=== PATIENT | male | born 1955 | race American Indian/Alaskan Native ===

== ENCOUNTER 2018-01-15 19:24 | Emergency (ER) | payer SELFPAY ==
[2018-01-15 19:37] VITALS: TEMP 98.2
[2018-01-15] MEDS ORDERED: Alum-Mag Hydrox-Simethicone Susp (30 mL) PO STA (20:38)
[2018-01-15] MEDS ORDERED: Alum-Mag Hydrox-Simethicone Susp (30 mL) ONE (21:12)
[2018-01-15] MEDS ORDERED: Sodium Chloride 0.9% 50 ML IV ONE (21:18)
[2018-01-15] MEDS ORDERED: Iohexol 300 100 ML IJ ONE (21:18)
[2018-01-15 21:22] LABS: BASO % 0.3 % (0.0-2.0); EOS % 0.5 % (0.0-4.0); HEMOGLOBIN 15.4 g/dL (12.0-18.0); LYMPH # 1.4 K/uL (1.0-4.3); LYMPH % 18.6 % (20.0-40.0); MEAN CELL VOLUME 90.4 fl (80.0-94.0); MEAN CORPUSCULAR HGB CONC 34.3 g/dL (33.0-37.0); MEAN PLATELET VOLUME 7.9 fl (7.2-11.7); MONO # 0.6 K/uL (0.0-0.8); MONO % 8.3 % (0.0-10.0); NEUT # 5.6 K/uL (1.8-7.0); NEUT % 72.3 % (50.0-75.0); NRBC % 0.1 % (0.0-0.0); RBC 4.97 Mil/uL (4.40-5.90); RED CELL DISTRIBUTION WIDTH 14.9 % (11.5-14.5); WHITE BLOOD COUNT 7.7 K/uL (4.8-10.8)
[2018-01-15] MEDS ORDERED: Iodixanol 320 MG/ML 100 ML BOTTLE IV ONE (21:51)
--- NOTE | 2018-01-15 22:13 | ED PDOC ---
HPI: SOB/CHF/COPD Time Seen by Provider: 01/15/18 19:58 Chief Complaint (Nursing): Shortness Of Breath Chief Complaint (Provider): Chest pain, abdominal pain, shortness of breath History Per: Patient History/Exam Limitations: no limitations Onset/Duration Of Symptoms: Other (x3 months) Current Symptoms Are (Timing): Still Present Additional Complaint(s): 62 year old male, with no past medical history, presents to the ED complaining of intermittent chest pain with shortness of breath and palpitations. Patient states he has abdominal pain and suspects he may have stomach cancer. He reports [place] in an illegal housing sentiment where there is dry cleaning fluid in the ground. He states he smokes 2 packs per day for many years now. Denies weight loss, fever, vomiting, or diarrhea. PMD: none Past Medical History Reviewed: Historical Data, Nursing Documentation, Vital Signs Vital Signs: Last Vital Signs Temp 98.2 F 01/15/18 19:34 Pulse 112 H 01/15/18 19:34 Resp 16 01/15/18 20:40 BP 155/102 H 01/15/18 19:34 Pulse Ox 98 01/15/18 20:40 - Medical History PMH: No Chronic Diseases - Surgical History Surgical History: No Surg Hx - Family History Family History: States: Unknown Family Hx - Social History Current smoker - smoking cessation education provided: Yes (2 packs per day) Alcohol: Occasional Drugs: Cannabis - Home Medications Home Medications: Ambulatory Orders Medication Instructions Recorded Albuterol HFA [Ventolin HFA 90 1 - 2 puff IH Q6 PRN #1 inhaler 01/16/18 mcg/actuation (8 g)] Miconazole Nitrate [Lotrimin AF] 1 spray TP BID 28 Days powder 01/16/18 - Allergies Allergies/Adverse Reactions: Allergies Allergy/AdvReac Type Severity Reaction Status Date / Time No Known Allergies Allergy Verified 01/15/18 19:34 Review of Systems ROS Statement: Except As Marked, All Systems Reviewed And Found Negative Constitutional: Negative for: Fever Cardiovascular: Positive for: Chest Pain Respiratory: Positive for: Shortness of Breath Gastrointestinal: Positive for: Abdominal Pain. Negative for: Vomiting, Diarrhea Physical Exam - Reviewed Nursing Documentation Reviewed: Yes Vital Signs Reviewed: Yes - Physical Exam Appears: Positive for: Non-toxic, No Acute Distress Head Exam: Positive for: ATRAUMATIC, NORMOCEPHALIC Skin: Positive for: Normal Color, Warm, Dry Eye Exam: Positive for: Normal appearance Neck: Positive for: Normal, Painless ROM Cardiovascular/Chest: Positive for: Regular Rate, Rhythm, Tachycardia Respiratory: Positive for: Normal Breath Sounds. Negative for: Wheezing, Respiratory Distress Gastrointestinal/Abdominal: Positive for: Tenderness (mild diffuse abdominal tenderness) Extremity: Positive for: Normal ROM Neurologic/Psych: Positive for: Alert, Oriented, Mood/Affect (anxious affect). Negative for: Motor/Sensory Deficits - Laboratory Results Result Diagrams: 01/15/18 21:18 01/15/18 21:18 - ECG O2 Sat by Pulse Oximetry: 98 (RA) Pulse Ox Interpretation: Normal Medical Decision Making Medical Decision Making: Initial Impression: 62 y/o male with multiple somatic complaints Initial Plan: --CT abd/pelvis --CT angio chest --CT chest, abd, pelvis --ECG --CMP --Troponin stat --CBC --D Dimer --Aluminum hydroxide 30mL PO --Pepcid 20mg IV 23:32 CTA FINDINGS: PULMONARY ARTERIES Dilated pulmonary arterial tree compatible with pulmonary arterial hypertension. AORTA There is no evidence for aneurysm or dissection of the thoracic aorta. LUNGS Scattered upper lobe predominant paraseptal emphysema is present. There is evidence for pulmonary venous congestion compatible with mild CHF. PLEURAL SPACES No pneumothorax evident. No pleural effusions. HEART The cardiac silhouette is enlarged. LYMPH NODES No lymphadenopathy is evident. BONES No focal osseous abnormality or acute fracture. UPPER ABDOMEN Images of the upper abdomen are unremarkable. IMPRESSION: 1. Scattered upper lobe predominant paraseptal emphysema is present. 2. The cardiac silhouette is enlarged. 3. There is evidence for pulmonary venous congestion compatible with mild CHF. 4. Dilated pulmonary arterial tree compatible with pulmonary arterial hypertension. 5. No evidence of PE. 23:40 CT Abd FINDINGS: LIVER: Unremarkable. GALLBLADDER AND BILE DUCTS: The gallbladder appears within normal limits. No radioopaque gallstones are seen. No biliary ductal dilatation is evident. PANCREAS: Unremarkable. SPLEEN: Unremarkable. ADRENAL GLANDS: Unremarkable. KIDNEYS, URETERS, AND BLADDER: The kidneys appear within normal limits. There is no hydronephrosis or hydroureter. No urinary calculi are seen. STOMACH AND BOWEL: There is diffuse diverticulosis noted involving descending and sigmoid colon. No evidence of acute diverticulitis. Thick walled fluid filled duodenum and loops of jejunum as well as ileum compatible with enteritis. Infectious and inflammatory etiologies are consider ed. APPENDIX: No evidence of acute appendicitis on CT examination. PERITONEUM: No free fluid. No free air. LYMPH NODES: No lymphadenopathy is evident. REPRODUCTIVE: Prostate gland is moderately enlarged and contains calcifications. Please correlate with PSA levels. VASCULATURE: No evidence of abdominal aortic aneurysm. BONES: No aggressive appearing osseous lesion. No acute osseous pathology evident. MISCELLANEOUS: Small fat-containing umbilical hernia is noted. IMPRESSION: 1. There is diffuse diverticulosis noted involving descending and sigmoid colon. No evidence of acute diverticulitis. 2. Enteritis. Infectious and inflammatory etiologies are considered. 3. Small fat-containing umbilical hernia is noted. 4. Prostate gland is moderately enlarged and contains calcifications. Please correlate with PSA levels. 01:05 CTs reviewed patient is stable for discharge. Provider emphasized need for patient to quit smoking and importance of following up regularly with healthcare provider. At this time patient is also requesting anti-fungal cream for his fungal foot infection. On re-examination patient has inter digital desquamification consistent with tinea pedis. Scribe Attestation: Documented by Ismael Valdez acting as a scribe for Pelon Pardo MD. Provider Scribe Attestation: All medical record entries made by the Scribe were at my direction and pe rsonally dictated by me. I have reviewed the chart and agree that the record accurately reflects my personal performance of the history, physical exam, medical decision making, and the department course for this patient. I have also personally directed, reviewed, and agree with the discharge instructions and disposition. Disposition - Clinical Impression Clinical Impression: Dyspnea - Disposition Referrals: [facility] [Outside] Disposition: Routine/Home Disposition Time: 01:05 Condition: STABLE Additional Instructions: MICHAEL VINSON, thank you for letting us take care of you today. Your provider was Pelon Pardo MD and you were treated for DIFFICULTY BREATHING. The emergency medical care you received today was directed at your acute symptoms. If you were prescribed any medication, please fill it and take as directed. It may take several days for your symptoms to resolve. Return to the Emergency Department if your symptoms worsen, do not improve, or if you have any other problems. Please contact your doctor or call one of the physicians/clinics you have been referred to that are listed on the Patient Visit Information form that is included in your discharge packet. Bring any paperwork you were given at discharge with you along with any medications you are taking to your follow up visit. Our treatment cannot replace ongoing medical care by a primary care provider outside of the emergency department. Thank you for allowing the [facility] team to be part of your care today. If you had an X-Ray or CT scan: A Radiologist will review the ED reading if any change in treatment is needed we will contact you. If you had a blood, urine, or wound culture: It will take several days for the results, if any change in treatment is needed we will contact you. If you had an STI test: It will take 48 hours for the results. Please call after 1 week if you have not heard back. Prescriptions: Albuterol HFA [Ventolin HFA 90 mcg/actuation (8 g)] 1 - 2 puff IH Q6 PRN #1 inhaler PRN Reason: Shortness Of Breath Miconazole Nitrate [Lotrimin AF] 1 spray TP BID 28 Days powder Instructions: Shortness of Breath (Dyspnea) Forms: [employer] ([place]enegrin)
[2018-01-15 22:31] LABS: ALB/GLOB RATIO 1.1 (1.0-2.1); ALT/SGPT 27 U/L (21-72); AST/SGOT 33 U/L (17-59); BLOOD UREA NITROGEN 17 mg/dl (9-20); CALCIUM 9.3 mg/dL (8.4-10.2); GFR NON-AFRICAN AMERICAN > 60
[2018-01-16 00:16] VITALS: RESP 17
[2018-01-16 00:45] VITALS: BP 164/89; PULSE 79
[2018-01-16 01:11] VITALS: O2SAT 98
--- NOTE | 2018-01-16 11:47 | CT ---
Date of service: 01/15/2018 PROCEDURE: CT Chest with contrast (Pulmonary Angiogram) HISTORY: chest pain r/o PE COMPARISON: None available. TECHNIQUE: Axial computed tomography images were obtained of the chest in the pulmonary arterial phase of enhancement. Coronal and sagittal reformatted images were created and reviewed. Intravenous contrast dose: 95 cc Omnipaque 300 Mean Hounsfield value in the main pulmonary artery: 240.41 Radiation dose: Total exam DLP = 1037.88 mGy-cm. This CT exam was performed using one or more of the following dose reduction techniques: Automated exposure control, adjustment of the mA and/or kV according to patient size, and/or use of iterative reconstruction technique. FINDINGS: PULMONARY ARTERIES: Unremarkable. No pulmonary embolism. AORTA: No acute findings. No thoracic aortic aneurysm. Atherosclerotic calcifications identified primarily aortic arch. LUNGS: Centrilobular emphysematous change. No suspicious pulmonary nodules, masses or infiltrates. PLEURAL SPACES: Unremarkable. No effusion or pneumothorax. HEART: Cardiomegaly. No evidence of acute, significant cardiovascular disease. LYMPH NODES: No lymphadenopathy. BONES, CHEST WALL: Unremarkable. No fracture or destructive lesion OTHER FINDINGS: Unremarkable. IMPRESSION: Unremarkable CT pulmonary angiogram. No pulmonary embolus. Additional benign and/or incidental findings described above. Concordant results (preliminary interpretation) provided by [facility]. Procedure Completed: 22:26. Preliminary Report: Dictated and Authenticated: 23:32. Final Interpretation: 11:43. January 16, 2018
--- NOTE | 2018-01-16 11:51 | CT ---
Date of service: 01/15/2018 PROCEDURE: CT Abdomen and Pelvis with contrast HISTORY: Abdominal pain. COMPARISON: None. TECHNIQUE: Intravenous contrast dose: 95 cc Visipaque 320. Radiation dose: Total exam DLP = 1037.88 mGy-cm. This CT exam was performed using one or more of the following dose reduction techniques: Automated exposure control, adjustment of the mA and/or kV according to patient size, and/or use of iterative reconstruction technique. FINDINGS: LOWER THORAX: Unremarkable. LIVER: Unremarkable. No gross lesion or ductal dilatation. GALLBLADDER AND BILE DUCTS: Unremarkable. PANCREAS: Unremarkable. No gross lesion or ductal dilatation. SPLEEN: Unremarkable. ADRENALS: Unremarkable. No mass. KIDNEYS AND URETERS: Unremarkable. No hydronephrosis. No solid mass. VASCULATURE: Unremarkable. No aortic aneurysm. No atherosclerotic calcification or mural plaque present. BOWEL: Diverticulosis without an acute inflammatory component or other associated pathologic process. APPENDIX: A normal appendix is visualized in it's entirety. PERITONEUM: Unremarkable. No free fluid. No free air. LYMPH NODES: Unremarkable. No enlarged lymph nodes. BLADDER: Unremarkable. REPRODUCTIVE: Unremarkable. BONES: No acute fracture. OTHER FINDINGS: None. IMPRESSION: No significant or acute findings to account for/ related to the clinical presentation. Additional benign and/or incidental findings described above. Discordant results (preliminary interpretation) provided by [employer]. Specifically there is no CT evidence of enteritis. Procedure Completed: 22:27. Preliminary Report: Dictated and Authenticated: Final Interpretation: 11:49. January 16, 2018
--- NOTE | 2018-01-16 12:05 | CARD ---
APPROVED REPORT Date of service: 01/15/2018 EKG Measurement Heart [id number] AL [id number] <Conclusion> Sinus tachycardia Otherwise normal ECG
== END 2018-01-16 01:07 | disposition home or self-care (01) ==
LOC: H.ER 19:24
DX: R06.00 Dyspnea, unspecified (principal)
CPT/HCPCS: 71275; 74177; 80053; 83880; 84484; 85025; 85378; 93005; 99284; Q9967